=== PATIENT | female | born 1985 | race Caucasian/White ===

== ENCOUNTER 2016-11-23 18:15 | Observation (INO) | payer BC ==
[~2016-11-23 18:15] MED LIST: COD LIVER OIL1 EAC2 PO; IBUPROFEN800 M1 PO; MILK OF MAGNESIA PO; OMEGA 3 1,0001 EAC1 PO; PRENATAL TABLE1 EAC3 PO; PROBIOTIC1 EA10 PO; SENOKOT-S TABL1 EACH PO; VITAMIN C100 M1 PO
[2016-11-23] MEDS ORDERED: VITAMIN D31000 UNI3 PO (20:24)
[2017-02-25] MEDS ORDERED: VITAMIN B-12250 MC2 PO (15:35)
[2017-02-25] MEDS ORDERED: FISH OIL 11000 MG/CA PO (15:35)
[2017-02-27] MEDS ORDERED: IBUPROFEN800 M1 PO (10:27)
== END 2016-11-23 20:58 ==
LOC: LDR 18:15
PROVIDERS: ADMIT Obstetrics & Gynecology Obstetrics
DX: O9A.213 Injury, poisoning and certain other consequences of external causes complicating pregnancy, third trimester (principal); Z79.899 Other long term (current) drug therapy; Z88.2 Allergy status to sulfonamides; W10.9XXA Fall (on) (from) unspecified stairs and steps, initial encounter; Z3A.28 28 weeks gestation of pregnancy; Z98.890 Other specified postprocedural states